=== PATIENT | female | born 1985 | race Asian ===

== ENCOUNTER 2018-02-21 06:20 | Inpatient (IN) | payer SELFPAY ==
[~2018-02-21] VITALS: Ht 160 cm; Wt 60.8 kg
[2018-02-21] MEDS ORDERED: OXYTOCIN 10 UNITS/ML VIAL IM ONE (06:35)
[2018-02-21] MEDS ORDERED: NALBUPHINE 10 MG/ML AMP IVP PRN (06:35)
[2018-02-21] MEDS ORDERED: METHYLERGONOVINE 0.2 MG/ML AMP IM PRN ×2 (06:35→10:20)
[2018-02-21] MEDS ORDERED: OXYTOCIN 20 UNITS in LACTATED RINGERS 1,000 ML IV SCH ×2 (06:35→10:55)
[2018-02-21] MEDS ORDERED: PROMETHAZINE 25 MG/ML VIAL IVP PRN (06:35)
[2018-02-21 07:07] LABS: BASOPHILS % (AUTO) 0.2 % (0.0-2.0); EOSINOPHILS # (AUTO) 0.1 K/uL (0-0.4); HEMATOCRIT 39.6 % (36-48); HEMOGLOBIN 13.4 g/dL (12.0-16.0); LYMPHOCYTES # (AUTO) 1.7 K/uL (2.5-16.5); LYMPHOCYTES % (AUTO) 19.1 % (20.5-51.1); MEAN CORPUSCULAR HEMOGLOBIN 33 pg (27-31); MEAN CORPUSCULAR HGB CONC 34 g/dL (33-37); MONOCYTES # (AUTO) 0.6 K/uL (0.8-1.0); MONOCYTES % (AUTO) 7.1 % (1.7-9.3); NEUTROPHILS # (AUTO) 6.3 K/uL (1.8-7.7); NEUTROPHILS % (AUTO) 72.6 % (42.2-75.2); PLATELET COUNT (AUTO) 165 K/uL (140-450); RED BLOOD CELL COUNT(AUTO) 4.04 MIL/uL (4.20-5.40); WHITE BLOOD COUNT (AUTO) 8.6 K/uL (4.8-10.8)
[2018-02-21] MEDS: LACTATED RINGERS 1,000 ML IV SCH ×2 (07:20→08:16)
[2018-02-21] MEDS ORDERED: ROPIVACAINE 0.2%/NS PREMIX 250 ML EPI ONE (07:38)
[2018-02-21 08:09] LABS: APPEARANCE,URINE HAZY (CLEAR); BILIRUBIN,URINE NEGATIVE (NEGATIVE); BLOOD, URINE NEGATIVE (NEGATIVE); COLOR,URINE YELLOW (YELLOW); LEUKOCYTE ESTERASE ,URINE NEGATIVE (NEGATIVE); NITRITE, URINE NEGATIVE (NEGATIVE); UGLUCOSE NEGATIVE (NEGATIVE)
--- NOTE | 2018-02-21 09:11 | NUR ---
PATIENT HAS BEEN SCREENED AND CATEGORIZED LOW NUTRITION RISK. PATIENT WILL BE SEEN WITHIN 7 DAYS OF ADMISSION. 02/27/[address]
[2018-02-21] MEDS ORDERED: OXYTOCIN 10 UNITS/ML VIAL ONE (09:14)
[2018-02-21] MEDS ORDERED: ROPIVACAINE 0.2%/NS PREMIX 250 ML EPI SCH (10:20)
[2018-02-21] MEDS ORDERED: MEASLES, MUMPS, AND RUBELLA 1 VIAL SQVAC PRN (10:20)
[2018-02-21] MEDS ORDERED: SODIUM PHOSPHATE 118 ML ENEM RC PRN (10:20)
[2018-02-21] MEDS ORDERED: TEMAZEPAM 15 MG CAP PO PRN (10:20)
[2018-02-21] MEDS ORDERED: oxyCODONE/APAP 5/325 MG 1 TAB TAB PO PRN (10:20)
[2018-02-21] MEDS ORDERED: BENZOCAINE/MENTHOL 20%-0.5% 60 GM CAN TP PRN (10:20)
[2018-02-21] MEDS ORDERED: OXYTOCIN 10 UNITS/ML VIAL IM PRN (10:20)
[2018-02-21] MEDS ORDERED: FERR-252 PO (15:17)
[2018-02-21] MEDS ORDERED: PREN-546 PO (15:17)
[2018-02-21] MEDS ORDERED: DOCUSATE SOD/SENNA 50/8.6 MG 1 TAB PO SCH (21:00)
[2018-02-21] MEDS: IBUPROFEN 800 MG TAB PO PRN (21:06)
[2018-02-21] MEDS: HYDROcodone/APAP 5/325 MG 1 TAB TAB PO PRN (23:09)
[2018-02-22 05:40] LABS: HEMATOCRIT 36.6 % (36-48); HEMOGLOBIN 12.4 g/dL (12.0-16.0)
[2018-02-22 06:28] LABS: RAPID PLASMA REAGIN NON-REACTIVE (Non Reactiv)
[2018-02-22] MEDS: HYDROcodone/APAP 5/325 MG 1 TAB TAB PO PRN ×2 (08:18→17:32)
[2018-02-22] MEDS: IBUPROFEN 800 MG TAB PO PRN (21:10)
== END 2018-02-23 12:30 | disposition home or self-care (01) | DRG 775 ==
LOC: MLD 06:20 → MFCC 14:45
PROVIDERS: ADMIT Obstetrics & Gynecology; ATTEND Obstetrics & Gynecology
PROC: 10E0XZZ Delivery of Products of Conception, External Approach (ICD-10-PCS; principal; 2018-02-21)
PROC: 0KQM0ZZ Repair Perineum Muscle, Open Approach (ICD-10-PCS; 2018-02-21)
PROC: 3E0R3BZ Introduction of Anesthetic Agent into Spinal Canal, Percutaneous Approach (ICD-10-PCS; 2018-02-21)
PROC: 00HU33Z Insertion of Infusion Device into Spinal Canal, Percutaneous Approach (ICD-10-PCS; 2018-02-21)
PROC: 3E0234Z Introduction of Serum, Toxoid and Vaccine into Muscle, Percutaneous Approach (ICD-10-PCS; 2018-02-22)
DX: O77.0 Labor and delivery complicated by meconium in amniotic fluid (principal); Z3A.40 40 weeks gestation of pregnancy; Z37.0 Single live birth; O70.1 Second degree perineal laceration during delivery; Z23 Encounter for immunization
CPT/HCPCS: 36415; 51702; 59409; 81003; 85018; 85025; 86592; 86886; 86900; 86901; 90715; J2590; J2795; J7120